=== PATIENT | female | born 1950 | race Caucasian/White ===

== ENCOUNTER 2021-04-15 12:58 | Outpatient (CLI) | payer OTHER | END 2021-04-15 13:17 | disposition home or self-care (01) | LOC: RAD 12:58 | PROVIDERS: ATTEND Orthopaedic Surgery | DX: M25.561 Pain in right knee (principal); M25.562 Pain in left knee ==

== ENCOUNTER 2022-07-11 09:47 | Outpatient (CLI) | payer OTHER | END 2022-07-11 09:50 | disposition home or self-care (01) | LOC: SONOGRAMA 09:47 | PROVIDERS: ATTEND Pathology Anatomic Pathology | DX: D34 Benign neoplasm of thyroid gland (principal); E04.9 Nontoxic goiter, unspecified ==

== ENCOUNTER 2023-03-21 11:35 | Outpatient (CLI) | payer OTHER | END 2023-03-21 11:40 | disposition home or self-care (01) | LOC: RAD 11:35 | PROVIDERS: ATTEND Orthopaedic Surgery | DX: Z96.653 Presence of artificial knee joint, bilateral (principal) ==